=== PATIENT | male | born 1955 | race Caucasian/White ===

== ENCOUNTER 2020-02-23 06:41 | Day surgery (SDC) | payer MEDICAID, SELFPAY ==
[2020-02-19 14:53] VITALS: BMI 32.4
--- NOTE | 2020-02-21 09:37 | P.CONAN_ITS ---
HPI - Anesthesia Eval Consult details Narrative: 64yo M for EGD [facility] Past Medical History Medical History Arthritis COPD (chronic obstructive pulmonary disease) Diabetes Elevated cholesterol Fatty liver GERD (gastroesophageal reflux disease) Hiatal hernia HTN (hypertension) Lab test negative for COVID-19 virus Lumbar herniated disc Sleep apnea Surgical History Surgical History H/O cervical discectomy H/O colonoscopy H/O foot surgery History of carpal tunnel release History of esophagogastroduodenoscopy (EGD) Hx of appendectomy Social History Social History Smoking Status: Former smoker Smoked in Last 30 Days: No Smoking Quit Date: 1984 Use of substances other than those prescribed or required for medical reasons: No Have you been hit, kicked, punched, or otherwise hurt by someone within the past year? If so, by whom?: No Advance Directives Information Provided: No Recently lost weight without trying: No Meds Allergies Allergy/AdvReac Type Severity Reaction Status Date / Time No Known Allergies Allergy Verified 02/19/20 15:02 Home Medications Medication Instructions Recorded Confirmed Type albuterol sulfate [ProAir HFA] 2 puff INHALATION QID PRN 02/19/20 02/19/20 History aspirin 81 mg PO DAILY 02/19/20 02/19/20 History budesonide-formoterol [Symbicort] 2 puff INHALATION Q12H 02/19/20 02/19/20 History canagliflozin [Invokana] 300 mg PO DAILY 02/19/20 02/19/20 History dulaglutide [Trulicity] 1.5 mg SUBCUT QWEEK 02/19/20 02/19/20 History esomeprazole magnesium [Nexium] 20 mg PO BID 02/19/20 02/19/20 History glimepiride 4 mg PO BID 02/19/20 02/19/20 History meclizine 25 mg PO TID PRN 02/19/20 02/19/20 History montelukast 10 mg PO BEDTIME 02/19/20 02/19/20 History simvastatin 20 mg PO BEDTIME 02/19/20 02/19/20 History Exam Exam Date and Time: February 21, 2020 0937 Height,Weight and Vital Signs: Height 5 ft 7 in Weight 93.894 kg Assessment and Plan Assessment Anesthesia Assessment: Chart Reviewed (02/21/20 )
[2020-02-23 07:22] VITALS: BP 151/89; PULSE 67; RESP 18; TEMP 36.5; O2SAT 97
[2020-02-23 07:23] LABS: Glucose, Whole Blood 177 mg/dL (60-115)
--- NOTE | 2020-02-23 07:23 | P.CONAN_ITS ---
[facility] Past Medical History Medical History Arthritis COPD (chronic obstructive pulmonary disease) Diabetes Elevated cholesterol Fatty liver GERD (gastroesophageal reflux disease) Hiatal hernia HTN (hypertension) Lab test negative for COVID-19 virus Lumbar herniated disc Sleep apnea Cognitive capacity: Awake and alert Family History Family history of problems with anesthesia: No Surgical History Surgical History H/O cervical discectomy H/O colonoscopy H/O foot surgery History of carpal tunnel release History of esophagogastroduodenoscopy (EGD) Hx of appendectomy History of Problems with Anesthesia: No Social History Social History Smoking Status: Former smoker Smoked in Last 30 Days: No Smoking Quit Date: 1984 Use of substances other than those prescribed or required for medical reasons: No Have you been hit, kicked, punched, or otherwise hurt by someone within the past year? If so, by whom?: No Advance Directives Information Provided: No Recently lost weight without trying: No Travel History History of recent travel: No Recent Travel in [facility] Within the Last 8 Weeks: No Recent Out of Country Travel Within the Last 8 Weeks: No Exposure or Possible Exposure to Illness During Travel: No History of Being in a Healthcare Facility as a Patient, Worker, or Visitor during Travel: No Medical Treatment Received for Symptoms/Illness Related to Travel: No Meds Allergies Allergy/AdvReac Type Severity Reaction Status Date / Time ciprofloxacin [From Cipro] Allergy Severe Throat Verified 02/23/20 07:41 closed, rashes Home Medications Medication Instructions Recorded Confirmed Type albuterol sulfate [ProAir HFA] 2 puff INHALATION QID PRN 02/19/20 02/19/20 History aspirin 81 mg PO DAILY 02/19/20 02/19/20 History budesonide-formoterol [Symbicort] 2 puff INHALATION Q12H 02/19/20 02/19/20 History canagliflozin [Invokana] 300 mg PO DAILY 02/19/20 02/19/20 History dulaglutide [Trulicity] 1.5 mg SUBCUT QWEEK 02/19/20 02/19/20 History esomeprazole magnesium [Nexium] 20 mg PO BID 02/19/20 02/19/20 History glimepiride 4 mg PO BID 02/19/20 02/19/20 History meclizine 25 mg PO TID PRN 02/19/20 02/19/20 History montelukast 10 mg PO BEDTIME 02/19/20 02/19/20 History simvastatin 20 mg PO BEDTIME 02/19/20 02/19/20 History Exam Exam Date and Time: February 23, 2020 0723 Height,Weight and Vital Signs: Vital Signs Temp Pulse Resp BP Pulse Ox 02/23/20 07:22 97.7 F 67 18 151/89 H 97 Height 5' 7 Weight 93.894 kg Pertinent Lab Results Pertinent Lab Results: Laboratory Tests 02/23/20 07:19 POC Glucose 177 H Assessment and Plan Assessment Anesthesia Assessment: Anesthesia Plan Discussed, Consent Obtained and Chart Reviewed Final Anesthetic Review NPO: Yes Intake Type: Clears Intake Timing: Greater than 8 hours and Solids Intake Timing: Greater than 8 hours ASA Class: III Final Preanesthetic Review: No Changes in Pt Med Stat, Meds & Allergies Reviewed, Consent Obtained/Reviewed, Med/Surg/Anes Hx Reviewed and Anes Risks/Benef Reviewed Patient Risk: Intermediate Procedure Risk: Low Anesthetic Plan Anesthetic Plan: MAC: Disposition: Standard PACU
[2020-02-23] MEDS: Lactated Ringers 1,000 ML 100 ML IVCONT (08:07)
[2020-02-23 08:45] VITALS: BP 133/82; PULSE 77; RESP 16; TEMP 36.2; O2SAT 98
[2020-02-23 09:04] VITALS: BP 136/91; PULSE 68; RESP 18; O2SAT 96
[2020-02-23 09:13] LABS: Glucose, Whole Blood 177 mg/dL (60-115)
[2020-02-23 09:15] LABS: Glucose, Whole Blood 177 mg/dL (60-115)
--- NOTE | 2020-02-23 10:39 | OP_ITS ---
SURGEON: Crow Dalal MD INDICATIONS: Gastroesophageal reflux disease. PREOPERATIVE DIAGNOSIS: POSTOPERATIVE DIAGNOSIS: PROCEDURE PERFORMED: Upper endoscopy with biopsy. ESTIMATED BLOOD LOSS: COMPLICATIONS: ANESTHESIA: ASSISTANTS: SPECIMENS: MEDICATIONS: Monitored anesthesia care. DESCRIPTION OF PROCEDURE: History and physical performed. The risks and benefits of the procedure were explained to the patient. Informed consent was obtained. The patient was placed in the left lateral decubitus position. The Olympus video gastroscope was introduced into the esophagus, stomach, and duodenum. Examination was performed and the scope was removed. He tolerated the procedure well and was taken to recovery area in stable condition. FINDINGS: Esophagus: The esophagus was normal. Stomach: The stomach showed no evidence of masses, ulcers, or polyps. Duodenum: The bulb and second portion were normal. Biopsies were obtained from the antrum and EG junction. IMPRESSION: Gastroesophageal reflux disease. RECOMMENDATION: Follow up the biopsy results. MD MARVA Ly/LIZZY / [id number]
== END 2020-02-23 09:39 | disposition home or self-care (01) ==
PROVIDERS: PCP Physician Assistant; Visit Provider Internal Medicine Gastroenterology
PROC: 0DJ08ZZ Inspection of Upper Intestinal Tract, Via Natural or Artificial Opening Endoscopic (ICD-10-PCS; CPT 43235; principal; 2020-02-23 08:10)
DX: K21.00 Gastro-esophageal reflux disease with esophagitis, without bleeding (principal); K44.9 Diaphragmatic hernia without obstruction or gangrene; K76.0 Fatty (change of) liver, not elsewhere classified; J44.9 Chronic obstructive pulmonary disease, unspecified; I10 Essential (primary) hypertension; E78.00 Pure hypercholesterolemia, unspecified; G47.33 Obstructive sleep apnea (adult) (pediatric); E11.9 Type 2 diabetes mellitus without complications; Z79.84 Long term (current) use of oral hypoglycemic drugs; Z79.51 Long term (current) use of inhaled steroids; Z79.82 Long term (current) use of aspirin; Z87.891 Personal history of nicotine dependence; Z88.1 Allergy status to other antibiotic agents
CPT/HCPCS: 43239; 82947; 88305; 88342

== ENCOUNTER 2022-06-19 07:30 | Day surgery (SDC) | payer MEDICARE, MEDICAID, SELFPAY ==
--- NOTE | 2022-06-18 14:38 | HO.ANESPROP2 ---
Documented by User: Reba Montiel NP 06/18/22 14:38 HPI - Anesthesia Eval Consult details Narrative: 67yo M for Upper Endoscopy and Colonoscopy [facility] Past Medical History Medical History (Updated 06/19/22 @ 08:23 by Estela Campbell, RN) Arthritis COPD (chronic obstructive pulmonary disease) Diabetes Diverticulosis Elevated cholesterol Fatty liver GERD (gastroesophageal reflux disease) Hiatal hernia HTN (hypertension) IBS (irritable bowel syndrome) Internal hemorrhoids Lab test negative for COVID-19 virus Lumbar herniated disc Sleep apnea Umbilical hernia Family History Family history of problems with anesthesia: No Surgical History Surgical History (Updated 06/19/22 @ 08:25 by Estela Campbell, MATTHEW) H/O cervical discectomy H/O colonoscopy H/O foot surgery H/O shoulder surgery History of carpal tunnel release History of esophagogastroduodenoscopy (EGD) Hx of appendectomy Hx of inguinal hernia repair S/P correction of deviated nasal septum History of Problems with Anesthesia: No Social History Social History Patient Tobacco Use Status: Former Tobacco user Quit Date: 40 yrs ago Tobacco use type: Cigarette Use of substances other than those prescribed or required for medical reasons: No Are you DNR?: No Advance Directives: No Advance Directives Information Provided: Yes Meds Allergies Allergy/AdvReac Type Severity Reaction Status Date / Time insulin detemir Allergy Intermediate Abdominal Verified 02/23/20 08:55 [From Levemir U-100 Insulin] Pain atorvastatin Allergy Unknown Verified 06/18/22 12:44 pioglitazone [From Actos] Allergy Unknown Verified 06/18/22 12:44 sucralfate Allergy Unknown Verified 06/18/22 12:44 dulaglutide [From Trulicity] AdvReac Stomach Verified 06/19/22 08:50 Upset esomeprazole [From Nexium] AdvReac Stomach Verified 06/19/22 08:51 Upset Home Medications Medication Instructions Recorded Confirmed Last Taken Type canagliflozin 300 mg tablet 300 mg PO DAILY 02/19/20 02/23/20 02/22/20 History (Invokana) glimepiride 4 mg tablet 4 mg PO BID 02/19/20 02/23/20 02/22/20 History meclizine 25 mg tablet 25 mg PO TID PRN Dizziness 02/19/20 02/23/20 Unknown History montelukast 10 mg tablet 10 mg PO BEDTIME 02/19/20 02/19/20 Unknown History simvastatin 20 mg tablet 20 mg PO BEDTIME 02/19/20 02/19/20 Unknown History lansoprazole 30 mg capsule,delayed 1 cap PO DAILY 06/18/22 06/18/22 Unknown History release albuterol sulfate 90 mcg/actuation inhalation 06/19/22 Unknown History aerosol inhaler (Ventolin HFA) lidocaine 4 % topical patch 1 patch topical DAILY PRN Pain 06/19/22 06/19/22 Unknown History (Lidocaine Pain Relief) Exam Exam Date and Time: June 18, 2022 013 Assessment and Plan Assessment Anesthesia Assessment: Chart Reviewed Final Anesthetic Review Family History of Problems with Anesthesia: No History of Problems with Anesthesia: No Documented by User: Rip Iniguez MD 06/19/22 08:51 [facility] Past Medical History Medical History (Updated 06/19/22 @ 08:23 by Estela Campbell RN) Arthritis COPD (chronic obstructive pulmonary disease) Diabetes Diverticulosis Elevated cholesterol Fatty liver GERD (gastroesophageal reflux disease) Hiatal hernia HTN (hypertension) IBS (irritable bowel syndrome) Internal hemorrhoids Lab test negative for COVID-19 virus Lumbar herniated disc Sleep apnea Umbilical hernia Functional capacity: independent ambulation Surgical History Surgical History (Updated 06/19/22 @ 08:25 by Estela Campbell RN) H/O cervical discectomy H/O colonoscopy H/O foot surgery H/O shoulder surgery History of carpal tunnel release History of esophagogastroduodenoscopy (EGD) Hx of appendectomy Hx of inguinal hernia repair S/P correction of deviated nasal septum Social History Social History Patient Tobacco Use Status: Former Tobacco user Quit Date: 40 yrs ago Tobacco use type: Cigarette Use of substances other than those prescribed or required for medical reasons: No Are you DNR?: No Advance Directives: No Advance Directives Information Provided: Yes Meds Allergies Allergy/AdvReac Type Severity Reaction Status Date / Time insulin detemir Allergy Intermediate Abdominal Verified 02/23/20 08:55 [From Levemir U-100 Insulin] Pain atorvastatin Allergy Unknown Verified 06/18/22 12:44 pioglitazone [From Actos] Allergy Unknown Verified 06/18/22 12:44 sucralfate Allergy Unknown Verified 06/18/22 12:44 dulaglutide [From Trulicity] AdvReac Stomach Verified 06/19/22 08:50 Upset esomeprazole [From Nexium] AdvReac Stomach Verified 06/19/22 08:51 Upset Home Medications Medication Instructions Recorded Confirmed Last Taken Type canagliflozin 300 mg tablet 300 mg PO DAILY 02/19/20 02/23/20 02/22/20 History (Invokana) glimepiride 4 mg tablet 4 mg PO BID 02/19/20 02/23/20 02/22/20 History meclizine 25 mg tablet 25 mg PO TID PRN Dizziness 02/19/20 02/23/20 Unknown History montelukast 10 mg tablet 10 mg PO BEDTIME 02/19/20 02/19/20 Unknown History simvastatin 20 mg tablet 20 mg PO BEDTIME 02/19/20 02/19/20 Unknown History lansoprazole 30 mg capsule,delayed 1 cap PO DAILY 06/18/22 06/18/22 Unknown History release albuterol sulfate 90 mcg/actuation inhalation 06/19/22 Unknown History aerosol inhaler (Ventolin HFA) lidocaine 4 % topical patch 1 patch topical DAILY PRN Pain 06/19/22 06/19/22 Unknown History (Lidocaine Pain Relief) Exam Airway Mallampati Class: II TM Dist: >3cm Neck ROM: Limited Heart: rrr Lungs: cta Assessment and Plan Final Anesthetic Review ASA Class: II and IV Final Preanesthetic Review: No Changes in Pt Med Stat, Meds/Allgs Chart Reviewed, Consent Obtained/Reviewed and Anes Risks/Benef Reviewed Patient Risk: Intermediate Procedure Risk: Intermediate Assessment/Block/Sedation in SS: Assess/Block/Sedation-SS Anesthetic Plan Anesthetic Plan: MAC: and Agree w/ Assess. and Plan Disposition: Standard PACU
[2022-06-19 08:21] VITALS: BMI 29.9
[2022-06-19 08:38] VITALS: BP 142/79; PULSE 2; RESP 15; TEMP 36.6; O2SAT 96
[2022-06-19] MEDS: Lactated Ringers 1,000 ML 100 ML IVCONT (08:49)
[2022-06-19 08:58] LABS: Glucose, Whole Blood 228 mg/dL (60-115)
--- NOTE | 2022-06-19 09:10 | P.HPSUR_ITS ---
Pre-Procedural Eval Section A Date of Service: 06/19/22 Section B Chief Complaint: screening,reflux,dysphagia Details of Present Illness: see h*p no changes Relevant Family History (Specify if Yes): No Relevant Social History: None Present Medications: see Short Stay [facility] assessment Medical History: No relevant PMH History of Previous Operations: No relevant previous surgery Allergies: Allergies Allergy/AdvReac Type Severity Reaction Status Date / Time insulin detemir Allergy Intermediate Abdominal Verified 02/23/20 08:55 [From Levemir U-100 Insulin] Pain pioglitazone [From Actos] Allergy Rash Verified 06/19/22 08:53 atorvastatin AdvReac Stomach Verified 06/19/22 08:53 Upset dulaglutide [From Trulicity] AdvReac Stomach Verified 06/19/22 08:53 Upset esomeprazole [From Nexium] AdvReac Stomach Verified 06/19/22 08:53 Upset sucralfate AdvReac Stomach Verified 06/19/22 08:53 Upset Review of Systems Sugical H&P ROS: Negative: Constitution, Cardiovascular, Respiratory, Neurolo gical, Psychiatric, Hem-Onc, Allergic/Immunologic, Gastrointestinal, Genitourinary, Musculoskeletal, Integumentary, Endocrine and Eyes/Ears/Nose/Throat Exam Surgical H&P Exam: Normal: HEENT, Normal: Heart, Normal: Lungs, Normal: Extremities, Normal: Abdomen, Normal: Skin and Normal: Neurological Plan I have reviewed the history and physical and performed a pertinent physical examination on my patient. No changes have occurred unless specified. Time Spent With Patient Time: Total time managing care of this patient today ____ minutes.
[2022-06-19 09:55] VITALS: BP 121/75; PULSE 61; RESP 16; TEMP 37.1; O2SAT 92
--- NOTE | 2022-06-19 09:57 | P.BOP_ITS ---
Brief Operative Note Date of Service: 06/19/22 Pre-op diagnosis: dysphagia screening gerd Post-op diagnosis: same Procedure: egd colonsocpy Surgeon: Crow Dalal Was an Coding Compliance Manager used for this Procedure?: No Estimated blood loss (mL): 2 Pathology: other Condition: stable Disposition: PACU
[2022-06-19 10:15] VITALS: BP 127/70; PULSE 57; RESP 18; TEMP 36.1; O2SAT 95
--- NOTE | 2022-06-19 21:18 | OP_ITS ---
SURGEON: Crow Dalal MD INDICATIONS: 1. Dysphagia. 2. Gastroesophageal reflux disease. 3. Colon cancer screening. PREOPERATIVE DIAGNOSIS: POSTOPERATIVE DIAGNOSIS: PROCEDURE PERFORMED: Upper endoscopy with balloon dilation and biopsy, colonoscopy to the terminal ileum with biopsy. ESTIMATED BLOOD LOSS: COMPLICATIONS: ANESTHESIA: Medications: Monitored anesthesia care. ASSISTANTS: SPECIMENS: DESCRIPTION OF PROCEDURE: A history and physical was performed. The procedure was performed on 06/19/2022. Risks and benefits of the procedure were explained to the patient. Informed consent was obtained. The patient was placed in the left lateral decubitus position. The Olympus video gastroscope was introduced into the esophagus, stomach, and duodenum. Examination was performed and the scope was removed. He was repositioned for colonoscopy. A digital rectal exam was performed and was found to be normal. The Olympus pediatric video colonoscope was introduced into the rectum and advanced to the cecum without difficulty. The cecum was identified by translumination, palpation, and identification of the ileocecal valve. Examination was performed. The scope was removed. He tolerated both procedures well and was returned to the recovery area in stable condition. FINDINGS: UPPER ENDOSCOPY: Esophagus: The esophagus was normal. No stricture was identified. The scope was easily passed through the upper esophageal sphincter and the lower esophageal sphincter. There was no esophagitis. Balloon dilation of the upper esophageal sphincter was performed to 18 and 20 mm for 60 seconds with a balloon passed through the endoscope with no complications. Biopsies were obtained from the EG junction. Stomach: The stomach was normal. Biopsies were obtained from the antrum. Duodenum: The bulb and second portion were normal. COLONOSCOPY: The terminal ileum was normal. The visualized colonic mucosa was normal. The quality of prep was good. There was mild sigmoid diverticulosis. Two polyps were identified and removed with the biopsy forceps both measuring less than 5 mm. These were located at 75 cm and 25 cm. Retroflexed examination showed some small internal hemorrhoids. IMPRESSION: 1. Dysphagia. 2. Gastroesophageal reflux disease. 3. Colon polyps. RECOMMENDATIONS: Follow up with the biopsy results. MD MARVA Ly/LIZZY / [id number] MTDD
== END 2022-06-19 10:27 | disposition home or self-care (01) ==
PROVIDERS: PCP Family Medicine; Visit Provider Internal Medicine Gastroenterology
PROC: (CPT 45380; principal; 2022-06-19 09:20)
DX: Z12.11 Encounter for screening for malignant neoplasm of colon (principal); D12.4 Benign neoplasm of descending colon; K63.5 Polyp of colon; K57.30 Diverticulosis of large intestine without perforation or abscess without bleeding; K64.8 Other hemorrhoids; K21.9 Gastro-esophageal reflux disease without esophagitis; R13.10 Dysphagia, unspecified; K76.0 Fatty (change of) liver, not elsewhere classified; J44.9 Chronic obstructive pulmonary disease, unspecified; G47.33 Obstructive sleep apnea (adult) (pediatric); E11.8 Type 2 diabetes mellitus with unspecified complications; Z79.84 Long term (current) use of oral hypoglycemic drugs; Z79.899 Other long term (current) drug therapy; Z88.8 Allergy status to other drugs, medicaments and biological substances; Z87.891 Personal history of nicotine dependence
CPT/HCPCS: 45380; 43249; 43239; 82947; 88305; 88342; C1726

== ENCOUNTER 2023-09-28 09:10 | Outpatient (REF) | payer MEDICARE, MEDICAID, SELFPAY ==
--- NOTE | ~2023-09-28 | FL_ITS ---
EXAMINATION: XR FLUOROSCOPY UPPER GI WITH AIR CLINICAL INFORMATION: Dysphagia. Globus sensation COMPARISON: None TECHNIQUE: Fluoroscopic air contrast upper GI examination was performed utilizing standard techniques with thin and thick barium and effervescent granules. Numerous spot images were obtained. FINDINGS: Status post ACDF C5-C7, with interbody screws and anterior plate. No obvious complication of hardware or mass effect upon the upper esophagus or hypopharyngeal structures. There is complete bony fusion through the disc spaces. Lateral cine images of the oropharynx and hypopharynx demonstrate normal swallow mechanism with normal epiglottic inversion and soft palate elevation. There is trace laryngeal penetration with thick barium. There is persistent pooling in the piriform sinuses and vallecula. No glottic or subglottic aspiration identified. No nasopharyngeal reflux present. Hypopharyngeal structures appear normal without evidence of mass or diverticulum. There was no significant cricopharyngeal achalasia. Dual and single contrast images of the esophagus demonstrate normal caliber, contour, and mucosal pattern. No evidence of stricture, mass, or ulcerations identified. Esophageal peristalsis is mildly disorganized. The patient swallowed the barium pill without any difficulty. There was temporary stasis of the barium pill at the GE junction that passed with subsequent sips of water. A small type I hiatal hernia is present. Gastroesophageal reflux is seen up to the midesophagus. Dual contrast and single contrast images of the stomach demonstrated a normal contour. The gastric rugal folds have a mildly thickened appearance. No masses or ulcerations are seen. Contrast freely passed into the gastric antrum and duodenal bulb without delay. Single and air-contrast images of the duodenal bulb demonstrate no abnormality. The duodenal sweep has a normal appearance, course, and mucosal fold appearance. A small diverticulum is noted in the second portion of duodenum. No evidence of malrotation. The imaged proximal jejunum has a normal fold pattern and caliber. FLUOROSCOPY TIME: 3 minutes 53 seconds Number of Spot Images: 11 Number of Cine: 13 DOSE AREA PRODUCT: 2933 uGy-m2 (microgray-meter squared) FL/FL barium swallow IMPRESSION: 1. Minimal laryngeal penetration with thick barium. No glottic or subglottic aspiration. No obvious explanation for globus sensation aside from mild persistent pooling of contrast in the piriform sinuses and valleculae. 2. Mildly disorganized esophageal peristalsis. 3. Temporary stasis of the 13 mm barium tablet at the GE junction, which subsequently passes with sips of water. No stricture is seen. 4. Small type I hiatal hernia. 5. Mild to moderate gastroesophageal reflux. 6. Mildly thickened gastric rugal folds that could potentially represent gastritis. 7. Tiny diverticulum in the second segment of the duodenum. 8. Status post ACDF C5-C7, with no complication or mass effect. This procedure was performed by Joseph Crespo PA-C, and supervised by Dr. Stinson
== END 2023-09-28 09:11 | disposition home or self-care (01) ==
LOC: HO.XRAY 09:10
PROVIDERS: PCP Physician Assistant; Visit Provider Internal Medicine Gastroenterology
DX: R13.10 Dysphagia, unspecified (principal)
CPT/HCPCS: 74220

== ENCOUNTER → 2023-09-28 09:11 | Outpatient (BNV) | payer MEDICARE, MEDICAID, SELFPAY | PROVIDERS: PCP Physician Assistant; Visit Provider Physician Assistant Surgical | DX: R13.10 Dysphagia, unspecified (principal) | CPT/HCPCS: 74246 ==